=== PATIENT | female | born 1985 | race Caucasian/White ===

== ENCOUNTER 2016-12-20 08:25 | Emergency (ER) | payer BC ==
[2016-12-20] MEDS ORDERED: Aspirin 81 MG Tab.Chew PO ONE (08:34)
[2016-12-20 08:53] LABS: CHLORIDE,CL 104 mEq/L (98-106); SODIUM,NA 138 mEq/L (136-145)
[2016-12-20 09:30] VITALS: BP 110/70
--- NOTE | 2016-12-20 09:35 | EDM.PDOC ---
ED HPI GENERAL MEDICAL PROBLEM - General Chief Complaint: Chest Pain Stated Complaint: chest pain Time Seen by Provider: 12/20/16 09:15 Source of Information: Reports: Patient, Family History Limitations: Reports: No limitations - History of Present Illness INITIAL COMMENTS - FREE TEXT/NARRATIVE: History of present illness: [31-year-old female presenting with complaints of sternal chest pain. Patient indicates that it is a stabbing sensation between her breasts and radiates down her arm indicates that sometimes it is her left and other times it is her right arm and sometimes it is both arms. Patient indicates the pain started last night and denies any precipitating event. 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 Past medical history: As per history of present illness and as reviewed below otherwise noncontributory. Surgical history: As per history of present illness and as reviewed below otherwise noncontributory. Social history: No reported history of drug or alcohol abuse. Family history: As per history of present illness and as reviewed below otherwise noncontributory. Physical exam: HEENT: Atraumatic, normocephalic, pupils reactive, negative for conjunctival pallor or scleral icterus, mucous membranes moist, throat clear, neck supple, nontender, trachea midline. Lungs: Clear to auscultation, breath sounds equal bilaterally, chest nontender. Heart: S1S2, regular, negative for clicks, rubs, or JVD. Abdomen: Soft, nondistended, nontender. Negative for masses or hepatosplenomegaly. Negative for costovertebral tenderness. Pelvis: Stable nontender. Genitourinary: Deferred. Rectal: Deferred. Extremities: Atraumatic, negative for cords or calf pain. Neurovascular unremarkable. Neuro: Awake, alert, oriented. Cranial nerves II through XII unremarkable. Cerebellum unremarkable. Motor and sensory unremarkable throughout. Exam nonfocal. Pain is reproducible with pressure on the sternum Diagnostics: [CBC, CMP, chest x-ray, neck x-ray, troponin, LDH] Therapeutics: [] Impression: [Atypical chest pain] Plan: [] Definitive disposition and diagnosis as appropriate pending reevaluation and review of above. Left Chest Pain Score (Numeric/FACES): 5 - Related Data Allergies Allergy/AdvReac Type Severity Reaction Status Date / Time No Known Allergies Allergy Verified 12/20/16 08:47 Home Meds: Home Meds Levothyroxine Sodium [Levothyroxine Sodium] 125 mcg PO DAILY 12/20/16 [History] Past Medical History Oncologic (Cancer) History: Reports: Thyroid - Past Surgical History Endocrine Surgical History: Reports: Thyroidectomy Musculoskeletal Surgical History: Reports: Other (see below) Other Musculoskeletal Surgeries/Procedures:: ganglion cyst removal from left wrist Social & Family History - Tobacco Use Smoking Status *Q: Never Smoker - Caffeine Use Caffeine Use: Reports: Coffee - Recreational Drug Use Recreational Drug Use: No ED ROS GENERAL - Review of Systems Review Of Systems: See Below (See history of present illness) ED EXAM, GENERAL - Physical Exam Exam: See Below (See history of present illness) Course - Vital Signs Last Recorded V/S: Last Vital Signs Temp 36.3 C 12/20/16 09:00 Pulse 70 12/20/16 09:30 Resp 16 12/20/16 09:30 BP 110/70 12/20/16 09:30 Pulse Ox 99 12/20/16 09:30 - Orders/Labs/Meds Orders: Active Orders 24 hr Category Date Time Status Cervical Spine 2V or 3V [CR] Stat Exams 12/20/16 08:43 Ordered Chest 2V [CR] Stat Exams 12/20/16 08:34 Ordered Labs: Laboratory Tests 12/20/16 12/20/16 12/20/16 Range/Units 08:40 08:40 08:40 WBC 6.7 (5.0-10.0) 10^3/uL RBC 4.91 (4.00-5.50) 10^6/uL Hgb 14.9 (12.0-16.0) g/dL Hct 44.1 (37.0-47.0) % MCV 89.8 (82.0-94.0) fL MCH 30.3 (27.0-32.0) pg MCHC 33.8 (33.0-38.0) g/dL RDW Coeff of Harjeet 12.8 (11.0-15.0) % Plt Count 206 (150-400) 10^3/uL Neut % (Auto) 65.4 (35-85) % Lymph % (Auto) 22.8 (10-55) % [place] % (Auto) 7.8 (0-16) % Eos % (Auto) 3.6 (0-5) % Baso % (Auto) 0.4 (0-3) % Neut # 4.36 (1.80-7.00) 10^3/uL Lymph # 1.52 (1.00-4.80) 10^3/uL [place] # 0.52 (0.00-0.80) 10^3/uL Eos # 0.24 (0.00-0.45) 10^3/uL Baso # 0.03 10^3/uL PT 10.1 (9.7-12.3) SEC INR 0.95 (0.92-1.18) APTT 30.8 (20.0-45.0) SEC D-Dimer, Quantitative 0.34 (0.00-0.50) Sodium 138 (136-145) mEq/L Potassium 4.3 (3.5-5.0) mEq/L Chloride 104 (98-106) mEq/L Carbon Dioxide 30 (21-32) mmol/L BUN 14 (7-18) mg/dL Creatinine 1.1 H (0.6-1.0) mg/dL Est Cr Clr Drug Dosing 68.10 mL/min Estimated GFR (MDRD) 57 L (>=60) mL/min Glucose 92 (75-99) mg/dL Calcium 8.2 L (8.4-10.1) mg/dL Lactate Dehydrogenase 216 H (100-190) U/L Creatine Kinase 94 (21-215) U/L Troponin I < 0.017 (0.00-0.06) ng/mL Meds: Medications Discontinued Medications Generic Name Dose Route Start Last Admin Trade Name Kendallq PRN Reason Stop Dose Admin Aspirin 324 mg 12/20/16 08:34 12/20/16 08:41 Aspirin PO 12/20/16 08:35 324 mg ONETIME ONE Administration Departure - Departure Time of Disposition: 09:33 Disposition: Home, Self-Care 01 Condition: good Clinical Impression: Atypical chest pain Referrals: Darci Yang PA-C [Primary Care Provider] - Forms: ED Department Discharge Additional Instructions: The following information is given to patients seen in the emergency department who are being discharged to home. This information is to outline your options for follow-up care. We provide all patients seen in our emergency department with a follow-up referral. The need for follow-up, as well as the timing and circumstances, are variable depending upon the specifics of your emergency department visit. If you don't have a primary care physician on staff, we will provide you with a referral. We always advise you to contact your personal physician following an emergency department visit to inform them of the circumstance of the visit and for follow-up with them and/or the need for any referrals to a consulting specialist. The emergency department will also refer you to a specialist when appropriate. This referral assures that you have the opportunity for follow-up care with a specialist. All of these measure are taken in an effort to provide you with optimal care, which includes your follow-up. Under all circumstances we always encourage you to contact your private physician who remains a resource for coordinating your care. When calling for follow-up care, please make the office aware that this follow-up is from your recent emergency room visit. If for any reason you are refused follow-up, please contact the [facility] Emergency Department at and asked to speak to the emergency department charge nurse. You may take 800 mg of ibuprofen every 8 hours as needed for pain Alternate ice and heat to the chest wall for comfort Followup with PCP 1-2 days Return to ED as needed as discussed - My Orders Last 24 Hours: My Active Orders 12/20/16 08:34 Chest 2V [CR] Stat 12/20/16 08:43 Cervical Spine 2V or 3V [CR] Stat - Assessment/Plan Last 24 Hours: My Active Orders 12/20/16 08:34 Chest 2V [CR] Stat 12/20/16 08:43 Cervical Spine 2V or 3V [CR] Stat
== END 2016-12-20 09:40 | disposition home or self-care (01) ==
LOC: CC.ED 08:25
DX: R07.89 Other chest pain (principal)
CPT/HCPCS: 36415; 71020; 72040; 80048; 82550; 83615; 84484; 85025; 85379; 85610; 85730; 99284; A9270

== ENCOUNTER 2017-07-23 16:50 | Emergency (ER) | payer BC ==
[2017-07-23 16:59] VITALS: BP 131/77
[2017-07-23] MEDS ORDERED: methylPREDNISolone Acetate 80 MG/ML SDV IM ONE (17:27)
[2017-07-23] MEDS ORDERED: cefTRIAXone 1 GM Vial IM ONE (17:27)
[2017-07-23] MEDS ORDERED: Lidocaine 1% 20 ML MDV INJECT ONE (17:27)
--- NOTE | 2017-07-23 17:33 | EDM.PDOC ---
ED HPI GENERAL MEDICAL PROBLEM - General Chief Complaint: General Stated Complaint: BAD COUGH Time Seen by Provider: 07/23/17 17:15 Source of Information: Reports: Patient History Limitations: Reports: No Limitations - History of Present Illness INITIAL COMMENTS - FREE TEXT/NARRATIVE: Patient presents to ER with a 2 week history of cough, chest congestion. Does note sinus drainage but no facial pain. She states she feels chest tightness, difficulty getting enough air in. Has noted wheezing at times. Denies fever. Cough has been moist but nonproductive. Onset: Gradual Duration: Week(s): Location: Reports: Chest Quality: Reports: Ache, Dull Severity: Mild Associated Symptoms: Reports: Cough, Shortness of Breath. Denies: Chest Pain, cough w sputum, Fever/Chills, Nausea/Vomiting Middle Chest Pain Score (Numeric/FACES): 5 - Related Data Allergies Allergy/AdvReac Type Severity Reaction Status Date / Time No Known Allergies Allergy Verified 07/23/17 16:52 Home Meds: Home Meds Levothyroxine Sodium [Levothyroxine Sodium] 125 mcg PO DAILY 12/20/16 [History] Past Medical History Oncologic (Cancer) History: Reports: Thyroid - Past Surgical History Endocrine Surgical History: Reports: Thyroidectomy Musculoskeletal Surgical History: Reports: Other (See Below) Social & Family History - Family History Family Medical History: Noncontributory - Tobacco Use Smoking Status *Q: Never Smoker Second Hand Smoke Exposure: No - Caffeine Use Caffeine Use: Reports: Coffee - Recreational Drug Use Recreational Drug Use: No ED ROS GENERAL - Review of Systems Review Of Systems: See Below Constitutional: Reports: Chills, Malaise, Weakness, Fatigue. Denies: Fever, Decreased Appetite HEENT: Reports: Rhinitis. Denies: Ear Pain, Sinus Problem, Throat Pain, Vertigo Respiratory: Reports: Shortness of Breath, Wheezing, Cough. Denies: Sputum Cardiovascular: Denies: Chest Pain, Edema, Lightheadedness Endocrine: Reports: Fatigue GI/Abdominal: Denies: Abdominal Pain, Nausea, Vomiting : Reports: No Symptoms Musculoskeletal: Reports: No Symptoms Skin: Reports: No Symptoms ED EXAM, GENERAL - Physical Exam Exam: See Below Exam Limited By: No Limitations General Appearance: Alert, WD/WN, No Apparent Distress Ears: Normal External Exam, Normal TMs Nose: Normal Inspection, Normal Mucosa, Nasal Drainage (turbinates edematous and red) Throat/Mouth: Normal Inspection, Normal Oropharynx Head: Normocephalic Neck: Normal Inspection, Supple, Non-Tender Respiratory/Chest: No Respiratory Distress, Rhonchi Cardiovascular: Regular Rate, Rhythm Neurological: Alert, Oriented Psychiatric: Normal Affect, Normal Mood Skin Exam: Warm, Dry Course - Vital Signs Last Recorded V/S: Last Vital Signs Temp 98.2 F 07/23/17 16:53 Pulse 91 07/23/17 16:53 Resp 18 07/23/17 16:53 BP 131/77 07/23/17 16:53 Pulse Ox 99 07/23/17 16:53 - Orders/Labs/Meds Orders: Active Orders 24 hr Category Date Time Status Lidocaine 1% [Xylocaine 1%] Med 07/23/17 17:27 Once 20 ml INJECT ONETIME ONE cefTRIAXone [Rocephin] Med 07/23/17 17:27 Once 1 gm IM ONETIME ONE methylPREDNISolone Acetate [Depo-Medrol] Med 07/23/17 17:27 Once 80 mg IM ONETIME ONE Departure - Departure Time of Disposition: 17:32 Disposition: Home, Self-Care 01 Condition: Good Clinical Impression: Bronchitis - Discharge Information Additional Instructions: 1. Rest 2. Push fluids 3. Tylenol or ibuprofen for fever or discomfort 4. Ceftin 250 mg twice a day for 10 days 5. Follow up if any ongoing concerns. - My Orders Last 24 Hours: My Active Orders 07/23/17 17:27 Lidocaine 1% [Xylocaine 1%] 20 ml INJECT ONETIME ONE cefTRIAXone [Rocephin] 1 gm IM ONETIME ONE methylPREDNISolone Acetate [Depo-Medrol] 80 mg IM ONETIME ONE - Assessment/Plan Last 24 Hours: My Active Orders 07/23/17 17:27 Lidocaine 1% [Xylocaine 1%] 20 ml INJECT ONETIME ONE cefTRIAXone [Rocephin] 1 gm IM ONETIME ONE methylPREDNISolone Acetate [Depo-Medrol] 80 mg IM ONETIME ONE
== END 2017-07-23 17:55 | disposition home or self-care (01) ==
LOC: CC.ED 16:50
DX: J40 Bronchitis, not specified as acute or chronic (principal); Z79.899 Other long term (current) drug therapy
CPT/HCPCS: 96372; 99282; J0696; J1040

== ENCOUNTER 2018-03-19 23:20 | Emergency (ER) | payer BC ==
[2018-03-19 23:40] VITALS: BP 127/78
[2018-03-19] MEDS ORDERED: methylPREDNISolone Acetate 80 MG/ML SDV ONE (23:52)
[2018-03-20] MEDS ORDERED: methylPREDNISolone Acetate 80 MG/ML SDV IM ONE (00:01)
--- NOTE | 2018-03-20 00:03 | EDM.PDOC ---
ED HPI GENERAL MEDICAL PROBLEM - General Chief Complaint: General Stated Complaint: COUGH Time Seen by Provider: 03/19/18 23:50 - History of Present Illness INITIAL COMMENTS - FREE TEXT/NARRATIVE: Mojgan is a 32 year old female who presents to the ED with c/o cough since Thursday, worsening tonight. She reports she was seen in the clinic yesterday and told she had allergies. She has started taking Clartin. She reports that this evening she began feeling worse. She reports she gets short of breath with activity. Has had a dry cough and sinus congestion. Thinks she may had had a fever. Temp 99 in ED. Has not taken anything else for her symptoms. Denies any chest pain, dizziness, difficulty breathing. Onset Date: 03/17/18 Duration: Getting Worse Associated Symptoms: Reports: Cough, cough w sputum, Fever/Chills, Headaches, Loss of Appetite, Shortness of Breath. 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 Medication(s) (claritin) Headache Pain Score (Numeric/FACES): 4 - Related Data Allergies Allergy/AdvReac Type Severity Reaction Status Date / Time No Known Allergies Allergy Verified 03/19/18 23:25 Home Meds: Home Meds Levothyroxine Sodium 125 mcg PO DAILY 12/20/16 [History] Past Medical History Oncologic (Cancer) History: Reports: Thyroid - Past Surgical History Endocrine Surgical History: Reports: Thyroidectomy Musculoskeletal Surgical History: Reports: Other (See Below) Social & Family History - Family History Family Medical History: Noncontributory - Tobacco Use Smoking Status *Q: Never Smoker Second Hand Smoke Exposure: No - Caffeine Use Caffeine Use: Reports: Coffee ED ROS GENERAL - Review of Systems Review Of Systems: ROS reveals no pertinent complaints other than HPI. ED EXAM, GENERAL - Physical Exam Exam: See Below Exam Limited By: No Limitations General Appearance: Alert, WD/WN, No Apparent Distress Eye Exam: Bilateral Eye: EOMI, Normal Fundi, Normal Inspection, PERRL Ears: Normal External Exam, Normal Canal, Hearing Grossly Normal, Normal TMs Nose: Normal Inspection, Normal Mucosa, No Blood Throat/Mouth: Normal Inspection, Normal Lips, Normal Teeth, Normal Gums, Normal Oropharynx, Normal Voice, No Airway Compromise Head: Atraumatic, Normocephalic Neck: Normal Inspection, Supple, Non-Tender, Full Range of Motion Respiratory/Chest: No Respiratory Distress, Lungs Clear, Normal Breath Sounds, No Accessory Muscle Use, Chest Non-Tender Cardiovascular: Normal Peripheral Pulses, Regular Rate, Rhythm, No Edema, No Gallop, No JVD, No Murmur, No Rub Neurological: Alert, Oriented, CN II-XII Intact, Normal Cognition, Normal Gait, Normal Reflexes, No Motor/Sensory Deficits Psychiatric: Normal Affect, Normal Mood Lymphatic: No Adenopathy Course - Vital Signs Last Recorded V/S: Last Vital Signs Temp 99.1 F 03/19/18 23:28 Pulse 87 03/19/18 23:28 Resp 18 03/19/18 23:28 BP 127/78 03/19/18 23:28 Pulse Ox 97 03/19/18 23:28 Departure - Departure Time of Disposition: 23:58 Disposition: Home, Self-Care 01 Condition: Good Clinical Impression: Allergic bronchitis Qualifiers: Asthma severity: unspecified severity Asthma complication type: uncomplicated Qualified Code(s): J45.909 - Unspecified asthma, uncomplicated - Discharge Information Instructions: Cough, Adult, [id number] Referrals: Darci Yang PA-C [Primary Care Provider] - Forms: ED Department Discharge Additional Instructions: Flonase twice daily Continue Claritin Azithromycin as directed if symptoms worsen or do not improve Push fluids Tylenol or ibuprofen as needed for fever/pain Follow up with PCP in clinic if no improvement
== END 2018-03-20 00:10 | disposition home or self-care (01) ==
LOC: CC.ED 23:20
DX: J45.909 Unspecified asthma, uncomplicated (principal); Z79.899 Other long term (current) drug therapy
CPT/HCPCS: 96372; 99282; J1040

== ENCOUNTER 2019-11-15 20:03 | Emergency (ER) | payer OTHER ==
[2019-11-15 20:08] VITALS: BP 131/89; PULSE 84
--- NOTE | 2019-11-15 21:00 | EDM.PDOC ---
ED HPI GENERAL MEDICAL PROBLEM - General Chief Complaint: Respiratory Problem Stated Complaint: SOB Time Seen by Provider: 11/15/19 20:25 Source of Information: Reports: Patient History Limitations: Reports: No Limitations - History of Present Illness INITIAL COMMENTS - FREE TEXT/NARRATIVE: Mojgan is a 34 yo female who presents to the ED via private vehicle with complaints of shortness of breath and chest discomfort that started last week Thursday. States it initially started with a sore throat. Admits on Thursday she started getting body aches, headache, cough, shortness of breath and fatigue. States she doesn't have the body aches anymore. Was seen at the urgent care in [place] yesterday and had an influenza screen which was negative. She admits she hasn't gotten much better today and the pain with coughing or taking deep breaths is worse. Chest Pain Score (Numeric/FACES): 4 - Related Data Allergies Allergy/AdvReac Type Severity Reaction Status Date / Time No Known Allergies Allergy Verified 11/15/19 20:08 Home Meds: Home Meds Levothyroxine Sodium 135 mcg PO DAILY 12/20/16 [History] Past Medical History Oncologic (Cancer) History: Reports: Thyroid - Past Surgical History Endocrine Surgical History: Reports: Thyroidectomy Social & Family History - Family History Family Medical History: Noncontributory - Tobacco Use Smoking Status *Q: Never Smoker - Caffeine Use Caffeine Use: Reports: Coffee - Recreational Drug Use Recreational Drug Use: No ED ROS GENERAL - Review of Systems Review Of Systems: See Below Constitutional: Reports: Chills, Fatigue. Denies: Fever HEENT: Reports: Rhinitis, Sinus Problem, Throat Pain Respiratory: Reports: Shortness of Breath, Pleuritic Chest Pain, Cough Cardiovascular: Denies: Chest Pain GI/Abdominal: Reports: Nausea. Denies: Abdominal Pain, Vomiting : Reports: No Symptoms Musculoskeletal: Reports: No Symptoms Skin: Reports: No Symptoms ED EXAM, GENERAL - Physical Exam Exam: See Below Exam Limited By: No Limitations General Appearance: Alert, WD/WN, No Apparent Distress Ears: Normal External Exam, Normal Canal, Hearing Grossly Normal, Normal TMs Nose: Normal Inspection, No Blood, Clear Rhinorrhea. No: Nasal Deformity, Nasal Flaring Throat/Mouth: Normal Inspection, Normal Lips, Normal Teeth, Normal Gums, Normal Oropharynx, Normal Voice, No Airway Compromise Head: Atraumatic, Normocephalic Neck: Normal Inspection, Supple, Non-Tender Respiratory/Chest: No Respiratory Distress, Lungs Clear, Normal Breath Sounds, No Accessory Muscle Use. No: Rales, Rhonchi, Wheezing, Accessory Muscle Use, Retractions, Prolonged Expiration Cardiovascular: Regular Rate, Rhythm, No Murmur Neurological: Alert, Oriented, No Motor/Sensory Deficits Psychiatric: Normal Affect, Normal Mood Skin Exam: Warm, Dry, Intact, Normal Color, No Rash Course - Vital Signs Last Recorded V/S: Last Vital Signs Temp 97.6 F 11/15/19 20:03 Pulse 84 11/15/19 20:03 Resp 20 11/15/19 20:03 BP 131/89 11/15/19 20:03 Pulse Ox 100 11/15/19 20:03 Departure - Departure Time of Disposition: 21:02 Disposition: Home, Self-Care 01 Clinical Impression: Acute bronchiolitis Qualifiers: Bronchiolitis organism: unspecified organism Qualified Code(s): J21.9 - Acute bronchiolitis, unspecified - Discharge Information Instructions: Upper Respiratory Infection, Adult, [id number] Referrals: Darci Yang PA-C [Primary Care Provider] - Additional Instructions: 1) Discussed viral etiology 2) Discussed further work up to include CBC, BMP, CRP, chest x-ray and repeating influenza screening, if you change your mind can always due further testing 3) Oxygen saturation is excellent tonight and overall physical exam looks okay 4) Recommend resting 5) Push fluids 6) Ibuprofen for chest discomfort with cough as discussed 7) May take other over the counter therapies for symptomatic cares 8)If symptoms worsen or any concerns, recommend reevaluation in ED. Sepsis Event Note - Evaluation Sepsis Screening Result: No Definite Risk - Focused Exam Vital Signs: Vital Signs Temp Pulse Resp BP Pulse Ox 11/15/19 20:03 97.6 F 84 20 131/89 100 Date Exam was Performed: 11/15/19 Time Exam was Performed: 20:51 - Problem List & Annotations (1) Acute bronchiolitis SNOMED Code(s): 8572399 Code(s): J21.9 - ACUTE BRONCHIOLITIS, UNSPECIFIED Status: Acute Current Visit: Yes Qualifiers: Bronchiolitis organism: unspecified organism Qualified Code(s): J21.9 - Acute bronchiolitis, unspecified - Assessment/Plan Plan: Exam was grossly benign. No adventitious sounds heard on auscultation. Chest discomfort reproduced with palpation to midsternal area. Discussed viral etiology and symptomatic cares. Mojgan declined further work up tonight. Will discharge home at this time in satisfactory condition.
== END 2019-11-15 21:10 | disposition home or self-care (01) ==
LOC: CC.ED 20:03
DX: J21.9 Acute bronchiolitis, unspecified (principal)
CPT/HCPCS: 99284

== ENCOUNTER → 2022-06-26 | Day surgery (SDC) | payer BC ==
[~2022-06-26] MED LIST: Acetaminophen/oxyCODONE 325-5 MG Tab PO PRN; Lactated Ringers 1,000 ML IV SCH; Morphine 2 MG/ML SYRINGE IV PRN; Morphine 4 MG/ML VIAL IV PRN; Ondansetron 4 MG/2 ML SDV IVPUSH PRN; Sodium Chloride 0.9% 10 ML Syringe FLUSH PRN; ceFAZolin 2 GM Vial IVPUSH ONE
[2022-06-27 03:39] VITALS: BP 118/68; PULSE 86
== END | disposition home or self-care (01) ==
LOC: CC.SDS 07:31
PROVIDERS: ATTEND Surgery
DX: K81.1 Chronic cholecystitis (principal); E03.9 Hypothyroidism, unspecified; E66.9 Obesity, unspecified; Z86.16 Personal history of COVID-19; Z79.890 Hormone replacement therapy; Z68.39 Body mass index [BMI] 39.0-39.9, adult
CPT/HCPCS: 00790; 36415; 84703; J0690; J7030; J7120